=== PATIENT | male | born 1965 | race Two or more races ===

== ENCOUNTER 2024-10-19 06:00 | Inpatient (IN) | payer MEDICARE, BC ==
[2024-10-19] VITALS (7 sets, daily range): BP systolic 161–174; BP diastolic 85–98; PULSE 73–87; RESP 19–25; TEMP 97.3
[~2024-10-19] VITALS: Ht 167.6 cm; Wt 77.3 kg
[2024-10-19 07:16] LABS: BASOPHILS % (AUTO) 1.1 % (0.0-2.0); EOSINOPHILS % (AUTO) 5.3 % (1.0-6.0); HEMATOCRIT 37.7 % (41-53); HEMOGLOBIN 12.3 g/dL (13.5-17.5); LYMPHOCYTES # (AUTO) 0.7 K/uL (1.0-4.8); LYMPHOCYTES % (AUTO) 10.3 % (22.0-44.0); MEAN CORPUSCULAR HEMOGLOBIN 29.8 pg (26.0-34.0); MEAN CORPUSCULAR HGB CONC 32.7 G/dL (31.0-37.0); MEAN CORPUSCULAR VOLUME 91 fL (80-100); MONOCYTES # (AUTO) 0.6 K/uL (0.1-1.0); MONOCYTES % (AUTO) 8.2 % (2.0-9.0); NEUTROPHILS # (AUTO) 5.3 K/uL (1.8-7.7); NEUTROPHILS % (AUTO) 75.1 % (40.0-70.0); PLATELET COUNT (AUTO) 178 K/uL (150-450); RED BLOOD CELL COUNT(AUTO) 4.13 MIL/uL (4.50-5.90); RED CELL DISTRIBUTION WIDTH 18.2 % (11.5-14.5)
[2024-10-19 07:25] LABS: ANION GAP 13 mmol/L (8-16); CALCIUM, TOTAL 8.9 mg/dL (8.8-10.5); CARBON DIOXIDE 27 mmol/L (22-29); CHLORIDE 101 mmol/L (98-107); CREATININE 11.19 mg/dL (0.60-1.30); GLOMERULAR FILTR. RATE CALC 5 mL/min (>60); GLUCOSE,RANDOM 124 mg/dL (70-110); POTASSIUM 5.3 mmol/L (3.5-5.1); SODIUM SERUM 141 mmol/L (136-145); UREA NITROGEN, BLOOD 69 mg/dL (7-18)
[2024-10-19 07:35] LABS: TROPONIN I-HIGH SENSITIVITY 48 ng/L (<76)
[2024-10-19 07:59] LABS: B-TYPE NATRIURETIC PEPTIDE 4280 pg/mL (0-100)
[2024-10-19] MEDS ORDERED: MORPHINE SULFATE 2 MG/ML SYRINGE IVP PRN (09:00)
[2024-10-19] MEDS ORDERED: ACETAMINOPHEN 325 MG TABLET PO PRN (09:00)
[2024-10-19] MEDS ORDERED: HYDROCODONE/ACETAMINOPHEN 5-325 MG TABLET PO PRN (09:00)
[2024-10-19] MEDS ORDERED: MAGNESIUM HYDROXIDE SUSPENSION 30 ML UDCUP PO PRN (09:00)
[2024-10-19] MEDS ORDERED: BISACODYL 10 MG RECTAL RECTAL SUPPOSITORY PR PRN (09:00)
[2024-10-19] MEDS ORDERED: ONDANSETRON HCL 4 MG/2 ML VIAL IVP PRN (09:00)
[2024-10-19] MEDS: DOCUSATE SODIUM 100 MG CAPSULE PO SCH (09:00)
[2024-10-19] MEDS: AmLODIPine BESYLATE 10 MG TABLET PO SCH (09:09)
[2024-10-19] MEDS: METOPROLOL TARTRATE 50 MG TABLET PO SCH (09:09)
[2024-10-19] MEDS: ASPIRIN 81 MG CHEWABLE TABLET PO SCH (09:09)
[2024-10-19] MEDS: PANTOPRAZOLE SODIUM 40 MG DR TABLET PO SCH (09:09)
[2024-10-19] MEDS: HydrALAZINE HCL 50 MG TABLET PO SCH (09:10)
[2024-10-19] MEDS ORDERED: ATOR20TA65 PO (13:00)
[2024-10-19] MEDS ORDERED: FURO80TA3 PO (13:00)
[2024-10-19] MEDS ORDERED: TAMS0.4C94 PO (13:00)
[2024-10-19] MEDS ORDERED: LINA5TAB PO (13:00)
[2024-10-19] MEDS ORDERED: GLIM1TAB56 PO (13:00)
[2024-10-19] MEDS ORDERED: AMLO10TA55 PO (13:00)
[2024-10-19] MEDS ORDERED: [UNRECOGNIZED DRUG - CODE] OU (13:00)
[2024-10-19] MEDS ORDERED: HYDR100T15 PO (13:00)
[2024-10-19] MEDS ORDERED: METO50 PO (13:00)
[2024-10-19] MEDS: HEPARIN SODIUM,PORCINE 5,000 UNITS/ML VIAL SQ SCH (15:14)
[2024-10-19] MEDS: FOLIC ACID/VIT B COMPLEX AND C TABLET PO SCH (17:44)
[2024-10-19] MEDS ORDERED: SODIUM CHLORIDE 0.9% 2,000 ML ONE (21:04)
[2024-10-20] VITALS (11 sets, daily range): BP systolic 146–184; BP diastolic 75–92; PULSE 65–84; RESP 18–20; TEMP 97.8–99.2; O2SAT 94–98
[2024-10-20 06:47] LABS: HEMATOCRIT 33.8 % (41-53); HEMOGLOBIN 11.1 g/dL (13.5-17.5); LYMPHOCYTES # (AUTO) 0.5 K/uL (1.0-4.8); LYMPHOCYTES % (AUTO) 8.8 % (22.0-44.0); MEAN CORPUSCULAR HGB CONC 32.9 G/dL (31.0-37.0); MEAN CORPUSCULAR VOLUME 91 fL (80-100); MONOCYTES # (AUTO) 0.5 K/uL (0.1-1.0); MONOCYTES % (AUTO) 8.3 % (2.0-9.0); NEUTROPHILS # (AUTO) 4.3 K/uL (1.8-7.7); NEUTROPHILS % (AUTO) 76.9 % (40.0-70.0); PLATELET COUNT (AUTO) 152 K/uL (150-450); RED BLOOD CELL COUNT(AUTO) 3.71 MIL/uL (4.50-5.90); RED CELL DISTRIBUTION WIDTH 17.5 % (11.5-14.5); WHITE BLOOD COUNT (AUTO) 5.5 K/uL (4.5-11.0)
[2024-10-20 06:48] LABS: HEMOGLOBIN A1C 5.9 % (3.8-5.6)
[2024-10-20 07:00] LABS: CALCIUM, TOTAL 8.7 mg/dL (8.8-10.5); CREATININE 7.24 mg/dL (0.60-1.30); POTASSIUM 5.2 mmol/L (3.5-5.1)
[2024-10-20] MEDS ORDERED: GLIMEPIRIDE 2 MG TABLET PO SCH (08:00)
[2024-10-20] MEDS: SODIUM ZIRCONIUM CYCLOSILICATE 10 GM POWDER PACKET PO ONE (13:13)
[2024-10-20] MEDS: ZOLPIDEM TARTRATE 5 MG TABLET PO PRN (20:48)
[2024-10-21] VITALS (14 sets, daily range): BP systolic 124–193; BP diastolic 61–111; PULSE 64–74; RESP 17–19; TEMP 98–99; O2SAT 93–96
[2024-10-21 07:07] LABS: EOSINOPHILS % (AUTO) 5.5 % (1.0-6.0); HEMATOCRIT 34.3 % (41-53); HEMOGLOBIN 11.2 g/dL (13.5-17.5); LYMPHOCYTES # (AUTO) 0.7 K/uL (1.0-4.8); LYMPHOCYTES % (AUTO) 12.1 % (22.0-44.0); MEAN CORPUSCULAR HEMOGLOBIN 29.9 pg (26.0-34.0); MEAN CORPUSCULAR HGB CONC 32.6 G/dL (31.0-37.0); MEAN CORPUSCULAR VOLUME 92 fL (80-100); MONOCYTES # (AUTO) 0.6 K/uL (0.1-1.0); MONOCYTES % (AUTO) 11.5 % (2.0-9.0); NEUTROPHILS # (AUTO) 3.9 K/uL (1.8-7.7); NEUTROPHILS % (AUTO) 69.9 % (40.0-70.0); PLATELET COUNT (AUTO) 154 K/uL (150-450); RED BLOOD CELL COUNT(AUTO) 3.74 MIL/uL (4.50-5.90); RED CELL DISTRIBUTION WIDTH 17.7 % (11.5-14.5); WHITE BLOOD COUNT (AUTO) 5.6 K/uL (4.5-11.0)
[2024-10-21 07:14] LABS: CALCIUM, TOTAL 8.7 mg/dL (8.8-10.5); CREATININE 9.96 mg/dL (0.60-1.30); POTASSIUM 5.9 mmol/L (3.5-5.1)
[2024-10-21] MEDS ORDERED: SODIUM CHLORIDE 0.9% 2,000 ML ONE (07:59)
[2024-10-22] MEDS ORDERED: LOSARTAN POTASSIUM 25 MG TABLET PO SCH (09:00)
== END 2024-10-21 14:47 | disposition home or self-care (01) | DRG 291 ==
LOC: EMS 06:04 → EDH 08:51 → 5S 20:51
PROVIDERS: ADMIT Internal Medicine; ATTEND Internal Medicine
PROC: 5A1D70Z Performance of Urinary Filtration, Intermittent, Less than 6 Hours Per Day (ICD-10-PCS; principal; 2024-10-19)
PROC: 5A1D70Z Performance of Urinary Filtration, Intermittent, Less than 6 Hours Per Day (ICD-10-PCS; 2024-10-21)
DX: I13.2 Hypertensive heart and chronic kidney disease with heart failure and with stage 5 chronic kidney disease, or end stage renal disease (principal); I50.43 Acute on chronic combined systolic (congestive) and diastolic (congestive) heart failure; N18.6 End stage renal disease; I16.0 Hypertensive urgency; E11.22 Type 2 diabetes mellitus with diabetic chronic kidney disease; E87.5 Hyperkalemia; E87.6 Hypokalemia; R09.02 Hypoxemia; E11.40 Type 2 diabetes mellitus with diabetic neuropathy, unspecified; D63.8 Anemia in other chronic diseases classified elsewhere; I25.10 Atherosclerotic heart disease of native coronary artery without angina pectoris; E11.319 Type 2 diabetes mellitus with unspecified diabetic retinopathy without macular edema; E78.00 Pure hypercholesterolemia, unspecified; Z79.84 Long term (current) use of oral hypoglycemic drugs; Z79.899 Other long term (current) drug therapy; Z99.2 Dependence on renal dialysis
CPT/HCPCS: 71045; 80048; 83036; 83880; 84484; 85025; 87081; 87340; 90935; 93005; 93306; 99285; J1644; J7030; 36415-L1; 36415-TC